=== PATIENT | female | born 1985 | race Two or more races ===

== ENCOUNTER 2022-10-05 15:12 | Emergency (ER) | payer BC, MEDICAID, OTHER ==
[~2022-10-05] VITALS: Ht 165.1 cm; Wt 115.9 kg
[2022-10-05 15:44] LABS: Basophils # (auto) 0 10 ^3/uL (0-0.2); Basophils % (auto) 0.4 % (0.0-2.0); Eosinophils # (auto) 0.1 10 ^3/uL (0-0.8); Hematocrit 44.2 % (36.0-46.0); Hemoglobin 14.4 g/dL (12.2-16.2); Lymphocytes # (auto) 3.6 10 ^3/uL (0.4-5.4); Lymphocytes % (auto) 31.3 % (10.0-50.0); Mean Corpuscular Hemoglobin 27.6 pg (28.0-32.0); Mean Corpuscular Hgb Conc. 32.5 g/dL (32.0-36.0); Mean Corpuscular Volume 84.9 fL (80.0-100.0); Monocytes # (auto) 0.9 10 ^3/uL (0-1.3); Monocytes % (auto) 8.1 % (0.0-12.0); Neutrophils # (auto) 6.9 10 ^3/uL (1.6-8.6); Neutrophils % (auto) 59.2 % (37.0-80.0); Nucleated Red Blood Cells % 0.1 %; Red Blood Cells 5.21 10^6/uL (4.0-5.20); Red Cell Distribution Width 14.9 % (11.8-14.3); White Blood Cell 11.6 10^3/uL (4.4-10.8)
[2022-10-05 16:00] LABS: Albumin 3.8 g/dL (3.4-5.0); Calcium 8.9 mg/dL (8.5-10.1); Magnesium 2.4 mg/dL (1.6-2.6)
[2022-10-05 16:01] LABS: INR 0.98 (0.9-1.15); Partial Thromboplastin Time 29.9 sec (24.6-33.4)
[2022-10-05 16:03] LABS: BUN/Creatinine Ratio 13.7 (10.0-20.0); Bilirubin, Total 0.5 mg/dL (0.2-1.0); Total Protein 7.4 g/dL (6.4-8.2)
[2022-10-05] MEDS ORDERED: ALPRAZolam 0.5 MG TAB PO ONE (21:30)
[2022-10-05 21:41] LABS: Urine Bacteria NONE SEEN /hpf (None Seen); Urine Blood Negative /uL (Negative); Urine Specific Gravity 1.019 (1.001-1.035); Urine WBC 1 /hpf (0 - 5)
[2022-10-05] MEDS ORDERED: ALPR0.5T PO (22:31)
[2022-10-05] MEDS ORDERED: ZOFR4T PO (22:31)
[2022-10-05 23:30] VITALS: BP 109/65
== END 2022-10-05 23:39 | disposition home or self-care (01) ==
LOC: ER 15:12
DX: F41.9 Anxiety disorder, unspecified (principal); F41.0 Panic disorder [episodic paroxysmal anxiety]; F17.210 Nicotine dependence, cigarettes, uncomplicated; Z88.8 Allergy status to other drugs, medicaments and biological substances; Z90.49 Acquired absence of other specified parts of digestive tract; Z90.89 Acquired absence of other organs
CPT/HCPCS: 36415; 70450; 71045; 80053; 81001; 81025; 83735; 83880; 84484; 85025; 85610; 85730; 93005

== ENCOUNTER 2023-08-28 11:16 | Emergency (ER) | payer BC ==
[~2023-08-28] VITALS: Ht 162.6 cm; Wt 97.2 kg
[~2023-08-28 11:16] MED LIST: ALPR0.5T PO; ZOFR4T PO
[2023-08-28 13:37] VITALS: BP 112/78; PULSE 85; RESP 18; TEMP 98; O2SAT 100
[2023-08-28] MEDS ORDERED: IBUP-1456 PO (13:53)
[2023-08-28] MEDS: ACETAMINOPHEN 500 MG TAB PO ONE (13:59)
== END 2023-08-28 14:00 | disposition home or self-care (01) ==
LOC: ER 11:16
DX: S46.912A Strain of unspecified muscle, fascia and tendon at shoulder and upper arm level, left arm, initial encounter (principal); S00.83XA Contusion of other part of head, initial encounter; F17.210 Nicotine dependence, cigarettes, uncomplicated; Z90.49 Acquired absence of other specified parts of digestive tract; Z90.89 Acquired absence of other organs; Z79.1 Long term (current) use of non-steroidal anti-inflammatories (NSAID); Z79.899 Other long term (current) drug therapy; Z88.8 Allergy status to other drugs, medicaments and biological substances; V43.52XA Car driver injured in collision with other type car in traffic accident, initial encounter; Y93.89 Activity, other specified; Y92.410 Unspecified street and highway as the place of occurrence of the external cause; Y99.8 Other external cause status
CPT/HCPCS: 73030

== ENCOUNTER 2023-11-20 00:26 | Emergency (ER) | payer BC ==
[~2023-11-20] VITALS: Ht 162.6 cm; Wt 97.0 kg
[2023-11-20 00:26] VITALS: BP 124/81; PULSE 86; RESP 18; O2SAT 99
[~2023-11-20 00:26] MED LIST changes: +IBUP-1456 PO
== END 2023-11-20 03:25 | disposition home or self-care (01) ==
LOC: ER 00:26
DX: S76.012A Strain of muscle, fascia and tendon of left hip, initial encounter (principal); E11.9 Type 2 diabetes mellitus without complications; F17.210 Nicotine dependence, cigarettes, uncomplicated; Z88.8 Allergy status to other drugs, medicaments and biological substances; Z79.1 Long term (current) use of non-steroidal anti-inflammatories (NSAID); Z79.899 Other long term (current) drug therapy; Z90.49 Acquired absence of other specified parts of digestive tract; Z90.89 Acquired absence of other organs; X58.XXXA Exposure to other specified factors, initial encounter; Y93.89 Activity, other specified; Y92.89 Other specified places as the place of occurrence of the external cause; Y99.8 Other external cause status
CPT/HCPCS: 73502

== ENCOUNTER 2024-09-21 21:31 | Emergency (ER) | payer BC ==
[~2024-09-21] VITALS: Ht 162.6 cm; Wt 105.2 kg
--- NOTE | 2024-09-21 22:43 | ED.PDOC ---
History of Present Illness HPI Comments 39 y/o obese F presents with 3x day history of abdominal pain, nausea, vomiting, and diarrhea. Patient endorses onset of symptoms after eating Oysters at a new buffet 3x days ago. She endorses on symptoms progressively worsening since and coming to the ED after consulting and being advised by a nurse phone help line. Patient reports a history of anxiety, DM, frequent UTI's, endometriosis s/p multiple D&C's, cholecystectomy, and tonsillectomy. She denies any recent travel, injuries, substance use, or further relevant history. She denies having any dysuria, bloody or bilious vomitus, constipation, fever, chills, or further associated symptoms. Chief Complaint: Abdominal Pain Time Seen by MD: 22:20 Primary Care Provider: NIKO Nagel Notes: Nurses Notes, Medications, Allergies Allergies: Coded Allergies: Aripiprazole (Verified Allergy, Unknown, 05/13/14) Lorazepam (Verified Allergy, Unknown, 05/13/14) Home Meds Active Scripts Ibuprofen (Ibuprofen) 800 Mg Tab, 1 TAB PO TID, #30 TAB Prov:SORAYA GARCIA 08/28/23 Ondansetron Odt 4MG Tab (ZOFRAN PO) 4 Mg Tb, 4 MG PO Q6HP PRN, #20 TAB ODT TAB-DISSOLVE IN MOUTH, THEN SWALLOW Prov:JOSSIE LOBO PAC 10/05/22 Alprazolam (Xanax) 0.5 Mg Tb, 1 TAB PO TID, #20 TAB Prov:JOSSIE LOBO PAC 10/05/22 Information Source: Patient Mode of Arrival: Ambulatory Past Medical History PAST MEDICAL HISTORY: Anxiety, DM, UTI'S Surgical History: Cholecystectomy, Tonsillectomy HEALTHCARE MANAGER History: Endometriosis, Other (D&C's) Family History Family History: Reviewed,noncontributory to illness Social History Smoker: Cigarettes Alcohol: Occasionally Drugs: Denies Drug Use Lives In: Home All Other Systems: Reviewed and Negative (Comprehensive systems review obtained and negative except for what is stated in the HPI.) Physical Exam General Appearance: Obese, Other (appears uncomfortable ) HEENT: Normal ENT Inspection, Pharynx Normal, TMs Normal Neck: Full Range of Motion, Non-Tender, Normal, Normal Inspection Respiratory: Chest Non-Tender, Lungs Clear, No Accessory Muscle Use, No Respiratory Distress, Normal Breath Sounds Cardiovascular: No Edema, No JVD, No Murmur, No Gallop, Normal Peripheral Pulses, Regular Rate/Rhythm Breast Exam: Deferred Gastrointestinal: No Organomegaly, Non Tender, No Pulsatile Mass, Normal Bowel Sounds, Soft Genitalia: Deferred Pelvic: Deferred Rectal: Deferred Extremities: No calf tenderness, Normal capillary refill, Normal inspection, Normal range of motion, Non-tender, No pedal edema Musculoskeletal : Apperance: Normal Neurologic: Alert, ultrasound tester II-XII nml as Tested, No Motor Deficits, Normal Affect, Normal Mood, No Sensory Deficits Cerebellar Function: Normal Reflexes: Normal Skin: Dry, Normal Color, Warm Lymphatic: No Adenopathy Was a procedure done? Was a procedure done?: No Differential Dx Considerations may include: UTI, gastritis, gastroenteritis, GERD, PUD, spoiled food, , endometriosis, among others X-Ray, Labs, Meds, VS Vital Signs Date Time Temp Pulse Resp B/P (MAP) Pulse Ox O2 Delivery O2 Flow Rate FiO2 09/22/24 00:45 100.0 111 17 97/72 (80) 98 100.0 09/21/24 22:40 99.5 117 17 107/75 (86) 96 99.5 09/21/24 21:43 98.3 115 16 114/77 (89) 98 98.3 Lab Test 09/21/24 22:34 09/21/24 22:30 Range/Units White Blood Count 10.7 4.4-10.8 10^3/uL Red Blood Count 5.91 H 4.0-5.20 10^6/uL Hemoglobin 17.5 H 12.2-16.2 g/dL Hematocrit 51.0 H 36.0-46.0 % Mean Corpuscular Volume 86.3 80.0-100.0 fL Mean Corpuscular Hemoglobin 29.6 28.0-32.0 pg Mean Corpuscular Hemoglobin Concent 34.3 32.0-36.0 g/dL Red Cell Distribution Width 14.3 11.8-14.3 % Platelet Count 239 140-450 10^3/uL Mean Platelet Volume 10.2 6.9-10.8 fL Neutrophils (%) (Auto) 81.7 H 37.0-80.0 % Lymphocytes (%) (Auto) 12.8 10.0-50.0 % Monocytes (%) (Auto) 5.0 0.0-12.0 % Eosinophils (%) (Auto) 0.3 0.0-7.0 % Basophils (%) (Auto) 0.2 0.0-2.0 % Neutrophils # (Auto) 8.7 H 1.6-8.6 10 ^3/uL Lymphocytes # (Auto) 1.4 0.4-5.4 10 ^3/uL Monocytes # (Auto) 0.5 0-1.3 10 ^3/uL Eosinophils # (Auto) 0 0-0.8 10 ^3/uL Basophils # (Auto) 0 0-0.2 10 ^3/uL Nucleated Red Blood Cells 0.1 % Sodium Level 137 136-145 mmol/L Potassium Level 4.5 3.5-5.1 mmol/L Chloride Level 102 98-107 mmol/L Carbon Dioxide Level 26 20-31 mmol/L Anion Gap 9 5-15 Blood Urea Nitrogen 10 9-23 mg/dL Creatinine 1.00 0.550-1.02 mg/dL Glomerular Filtration Rate Calc 74 >90 mL/min BUN/Creatinine Ratio 10.0 10.0-20.0 Serum Glucose 126 H 74-106 mg/dL Calcium Level 10.2 8.7-10.4 mg/dL Urine Color Dark-yellow Yellow Urine Clarity Turbid H Clear Urine pH 5.5 5.0-9.0 Urine Specific [place] 1.024 1.001-1.035 Urine Protein Trace H Negative Urine Ketones Negative Negative Urine Blood 3+ H Negative /uL Urine Nitrite Negative Negative Urine Bilirubin Negative Negative Urine Urobilinogen Normal Negative mg/dL Urine Leukocyte Esterase Negative Negative /uL Urine RBC 111 0 - 4 /hpf Urine Microscopic WBC 4 0-5 /HPF Urine Squamous Epithelial Cells Few <5 /hpf Urine Bacteria Few H None Seen /hpf Urine Mucus Few None Seen Urine Glucose Normal Normal mg/dL [address] [address] Ph: [phone] DIAGNOSTIC IMAGING Diagnostic Imaging Report : [id number] Signed PATIENT: LU LOPEZ ACCT: [id number] UNIT: [id number] : 1985 LOC: ER ROOM / BED: / AGE / SEX: 39 / F ADM STATUS: REG ER SERVICE 2320 ORDERING PHYSICIAN: YOUSIF PADILLA MD PROCEDURE(s): ABPL - CT AB PEL WO CON-NO ORAL OR IV REASON: left flank pain ORDER NUMBER(s): [id number], ACCESSION NUMBER(s): [id number] Exam: CT CT AB PEL WO CON-NO ORAL OR IV History: left flank pain Comparison Study: None Technique: Multidetector spiral CT of the abdomen was performed from lung bases to pubic symphysis. Imaging was performed without IV contrast. Axial, coronal and sagittal multiplanar reformats were obtained from the axial data set by the technologist. Radiation Dose : 1. Abdomen/Pelvis: CTDIvol 25.28 mGy, DLP 1542.62 mGy*cm. Findings: Evaluation of solid organs is limited due to lack of intravenous contrast use. Lung Bases: No abnormality demonstrated. Liver: Liver is normal in size. No focal lesions noted. Gallbladder and Biliary Tree: Cholecystsectomy. No evidence of biliary ductal dilatation. Spleen: No abnormality demonstrated. Pancreas: No abnormality demonstrated. Adrenal Glands: No abnormality demonstrated. Kidneys: No abnormality demonstrated. Bladder: Non distended and cannot be assessed. Bowel: Stomach appears grossly unremarkable. No abnormally dilated loops of large or small bowel noted. There is a segment of distal transverse colon / splenic flexure which is mildly distended with fluid with suggestion of mild wall thickening without significant associated inflammatory changes. This as such is nonspecific, may represent mild colitis. Appendix appears unremarkable. Ascites: Absent Lymphadenopathy: No evidence of lymphadenopathy. Abdominal Wall and Mesentery: Unremarkable. Vasculature: Unremarkable given lack of intravenous contrast. Pelvic Organs: No abnormality demonstrated. Small bilateral ovarian cysts noted slightly larger on the right side measuring up to 3 m. Musculoskeletal: No bony lesions or fracture. IMPRESSION: Possible mild colitis involving distal transverse colon / splenic flexure. Otherwise unremarkable study. Radiation optimization: All CT scans at this facility use at least one of these dose optimization techniques: automated exposure control mA and/or kV adjustment per patient size (includes targeted exams where dose is matched to clinical indication) or iterative reconstruction. ATED BY: RAZ MARTINEZ MD DICTATED DATE/TIME: 09/21/24 3774 SIGNED BY: RAZ MARTINEZ MD SIGNED DATE/TIME: 09/21/24 5839 CC: Time of 1ST Reevaluation: 22:50 Reevaluation 1ST: Unchanged Patient Education/Counseling: Diagnosis, Treatment, Need For Follow Up Family Education/Counseling: No Family Present Additional Information Reviewed patient's previous visit(s): November 20, 2023 encounter for strain of hip The following tests were ordered, and results were reviewed by me: UA, CBC, BMP Additional information was gathered from interviewing the following independent historian: N/A I reviewed and agreed with the following test results read by other provider: N/A I discussed treatments and results with medical personnel and: PATIENT Departure 1 Departure Time of Disposition: 00:55 (Patient presented with abdominal pain that was concerning for possible appendicits, gastritis, cholecystitis, colitis, gastroenteritis, or orther possible surgical emergency. Data: 1. I ordered and reviewed the result of at least 3 labs including a CBC, BMP, and Urinalysis. 2. I independently interpreted the following tests: CT Abdoment and Pelvis is concerning for gastroenteritis.Risk:This patient has a high risk of morbidity due to further diagnostic testing or treatment and may suffer from an acute abdominal process disorder. Fortunately workup reveals likely gastroenteritis and patient can be safely discharged to home with outpatient follow up.) Impression: Primary Impression: Gastroenteritis Disposition: 01 HOME / SELF CARE / HOMELESS Condition: Stable Additional Instructions: You likely have gastroenteritis. It is important to stay well hydrated and well rested. This usually resolves within two weeks If your symptoms worsen or you have any other concerns please return to the ER. Discharged With: Self Critical Care Note Critical Care Time?: No Stability Stability form required: No Heart Score Heart Score: Heart Score Response (Comments) Value History N/A 0 EKG N/A 0 Age N/A 0 Risk Factors N/A 0 Troponin N/A 0 Total 0 I personally scribed for YOUSIF PADILLA MD ([email or web address]) on 09/21/24 at 22:43. Electronically submitted by Zach Pal ([email or web address]). I personally scribed for YOUSIF PADILLA MD ([email or web address]) on 09/22/24 at 00:07. Electronically submitted by Zach Pal ([email or web address]). YOUSIF PADILLA MD September 21, 2024 22:43
[2024-09-21 22:47] LABS: Basophils # (auto) 0 10 ^3/uL (0-0.2); Basophils % (auto) 0.2 % (0.0-2.0); Eosinophils # (auto) 0 10 ^3/uL (0-0.8); Eosinophils % (auto) 0.3 % (0.0-7.0); Hemoglobin 17.5 g/dL (12.2-16.2); Lymphocytes # (auto) 1.4 10 ^3/uL (0.4-5.4); Lymphocytes % (auto) 12.8 % (10.0-50.0); Mean Corpuscular Hemoglobin 29.6 pg (28.0-32.0); Mean Corpuscular Hgb Conc. 34.3 g/dL (32.0-36.0); Mean Corpuscular Volume 86.3 fL (80.0-100.0); Monocytes # (auto) 0.5 10 ^3/uL (0-1.3); Neutrophils # (auto) 8.7 10 ^3/uL (1.6-8.6); Neutrophils % (auto) 81.7 % (37.0-80.0); Nucleated Red Blood Cells % 0.1 %; Platelet Count (auto) 239 10^3/uL (140-450); Red Blood Cells 5.91 10^6/uL (4.0-5.20); Red Cell Distribution Width 14.3 % (11.8-14.3); White Blood Cell 10.7 10^3/uL (4.4-10.8)
[2024-09-21 23:02] LABS: Urine Bacteria FEW /hpf (None Seen); Urine Blood 3+ /uL (Negative); Urine Clarity Turbid (Clear); Urine Color Dark-Yellow (Yellow); Urine Mucus FEW (None Seen); Urine Protein, UAD TRACE (Negative); Urine Specific Gravity 1.024 (1.001-1.035); Urine Squamous Epithelial Cell FEW /hpf (<5); Urine Urobilinogen Normal (Negative); Urine WBC 4 /HPF (0-5); Urine pH 5.5 (5.0-9.0)
[2024-09-21 23:02] LABS: Chloride 102 mmol/L (98-107); Potassium 4.5 mmol/L (3.5-5.1); Sodium 137 mmol/L (136-145)
[2024-09-21 23:03] LABS: Anion Gap 9 (5-15); Calcium 10.2 mg/dL (8.7-10.4); Carbon Dioxide 26 mmol/L (20-31)
[2024-09-21 23:08] LABS: Blood Urea Nitrogen 10 mg/dL (9-23)
[2024-09-21 23:13] LABS: Glucose 126 mg/dL (74-106)
--- NOTE | 2024-09-21 23:55 | DVH ---
Exam: CT CT AB PEL WO CON-NO ORAL OR IV History: left flank pain Comparison Study: None Technique: Multidetector spiral CT of the abdomen was performed from lung bases to pubic symphysis. Imaging was performed without IV contrast. Axial, coronal and sagittal multiplanar reformats were ob tained from the axial data set by the technologist. Radiation Dose : 1. Abdomen/Pelvis: CTDIvol 25.28 mGy, DLP 1542.62 mGy*cm. Findings: Evaluation of solid organs is limited due to lack of intravenous contrast use. Lung Bases: No abnormality demonstrated. Liver: Liver is normal in size. No focal lesions noted. Gallbladder and Biliary Tree: Cholecystsectomy. No evidence of biliary ductal dilatation. Spleen: No abnormality demonstrated. Pancreas: No abnormality demonstrated. Adrenal Glands: No abnormality demonstrated. Kidneys: No abnormality demonstrated. Bladder: Non distended and cannot be assessed. Bowel: Stomach appears grossly unremarkable. No abnormally dilated loops of large or small bowel not ed. There is a segment of distal transverse colon / splenic flexure which is mildly distended with fl uid with suggestion of mild wall thickening without significant associated inflammatory changes. This as such is nonspecific, may represent mild colitis. Appendix appears unremarkable. Ascites: Absent Lymphadenopathy: No evidence of lymphadenopathy. Abdominal Wall and Mesentery: Unremarkable. Vasculature: Unremarkable given lack of intravenous contrast. Pelvic Organs: No abnormality demonstrated. Small bilateral ovarian cysts noted slightly larger on th e right side measuring up to 3 m. Musculoskeletal: No bony lesions or fracture. IMPRESSION: Possible mild colitis involving distal transverse colon / splenic flexure. Otherwise unremarkable efren dy. Radiation optimization: All CT scans at this facility use at least one of these dose optimization [place] hniques: automated exposure control mA and/or kV adjustment per patient size (includes targeted exam s where dose is matched to clinical indication) or iterative reconstruction.
[2024-09-22 02:55] VITALS: BP 108/74; PULSE 106
[2024-09-22] MEDS: SODIUM CHLORIDE 0.9% 1,000 ML IV ONE (03:09)
[2024-09-22] MEDS: FAMOTIDINE (10MG/ML) 2ML VL IV ONE (03:10)
[2024-09-22] MEDS: ONDANSETRON HCL 4 MG/2 ML VIAL IV ONE (03:10)
[2024-09-22] MEDS: KETOROLAC TROMETH 30 MG/ML 1ML VIAL IV ONE (03:10)
[2024-09-22 03:50] VITALS: RESP 18; O2SAT 96
[2024-09-22 04:35] VITALS: TEMP 98.7
== END 2024-09-22 04:00 | disposition home or self-care (01) ==
LOC: ER 21:33
DX: K52.9 Noninfective gastroenteritis and colitis, unspecified (principal); R11.2 Nausea with vomiting, unspecified; F41.9 Anxiety disorder, unspecified; E11.9 Type 2 diabetes mellitus without complications; F17.210 Nicotine dependence, cigarettes, uncomplicated; Z90.49 Acquired absence of other specified parts of digestive tract; Z90.89 Acquired absence of other organs; Z79.899 Other long term (current) drug therapy
CPT/HCPCS: 36415; 74176; 80048; 81001; 82947; 85025; 96361; 96374; 96375; 99285; J1885; J2405; J3490; J7030